=== PATIENT | male | born 1935 | race Hispanic/Latino ===

== ENCOUNTER → 2017-10-24 | Outpatient (CLI) | payer MEDICARE ==
--- NOTE | 2017-10-24 18:07 | Diagnostic Imaging Report ---
PROCEDURE: L-SPINE COMPLETE COMPARISON: CT the abdomen and pelvis from 06/30/2016 INDICATIONS: LOWER BACK PAIN FINDINGS: 5 views of the lumbar spine (AP, lateral, L5-S1 view, and bilateral obliques). Moderate to severe multilevel degenerative changes of the lumbar spine. There is severe disc space narrowing at L3-L4 and L5-S1. There is moderate disc space narrowing at all other levels. There is grade 1 retrolisthesis of L4, unchanged since at least 06/30/2016. Moderate facet arthrosis affects the lower lumbar spine. Mild height loss of the L4 vertebral body may be related to degenerative changes and is unchanged since at least 06/30/2016. Vertebral body heights are otherwise maintained. No fracture. There are vascular calcifications. Degenerative changes of the sacroiliac joints. CONCLUSION: Multilevel degenerative changes of the lumbar spine as described above. Dictated by: Pedro Conley M.D. on 10/24/2017 at 18:13 Electronically approved by: Pedro Conley M.D. on 10/24/2017 at 18:13
== END ==
LOC: RAD 15:44
PROVIDERS: ATTEND Family Medicine
DX: I73.9 Peripheral vascular disease, unspecified (principal); M54.5 Low back pain
CPT/HCPCS: 72110; 93922; 93925

== ENCOUNTER 2017-11-07 09:07 | Inpatient (IN) | payer MEDICARE ==
[2017-11-07] VITALS (12 sets, daily range): BP systolic 105–134; BP diastolic 56–81
[~2017-11-07] VITALS: Ht 165.1 cm; Wt 64.6 kg
[2017-11-07] MEDS ORDERED: ATORVASTATIN CA40 MG PO (09:39)
[2017-11-07] MEDS ORDERED: PANTOPRAZOLE SO40 MG PO (09:39)
[2017-11-07] MEDS ORDERED: LOSARTAN-HCTZ1 EAC2 PO (09:39)
[2017-11-07] MEDS ORDERED: MECLIZINE HCL25 MG PO (09:39)
[2017-11-07] MEDS ORDERED: LEVOTHYROXINE50 MCG PO (09:39)
[2017-11-07] MEDS ORDERED: FENOFIBRATE160 MG PO (09:39)
[2017-11-07] MEDS ORDERED: GABAPENTIN300 MG PO (09:39)
[2017-11-07] MEDS ORDERED: BENAZEPRIL HCL40 MG PO (09:39)
[2017-11-07] MEDS ORDERED: LOW DOSE ASPIRI81 MG PO (09:39)
[2017-11-07] MEDS ORDERED: DICLOFENAC SOD100 MG PO (09:39)
[2017-11-07] MEDS ORDERED: ASPIRIN 81 MG CHEW TAB PO ONE (09:45)
[2017-11-07 10:47] LABS: BASOPHILS # (AUTO) 0.1 (0.0-0.1); BASOPHILS % 0.8 % (0.0-1.0); EOSINOPHILS # (AUTO) 0.1 (0.0-0.4); EOSINOPHILS % 1.4 % (0.0-6.0); HEMATOCRIT 36.8 % (38.2-49.6); HEMOGLOBIN 11.9 g/dL (14.0-18.0); LYMPHOCYTES # (AUTO) 2.1 (1.0-3.2); LYMPHOCYTES % 25.9 % (18.0-39.1); MEAN CORPUSCULAR HEMOGLOBIN 28.7 pg (28-32); MEAN CORPUSCULAR HGB CONC 32.3 g/dL (31-35); MEAN CORPUSCULAR VOLUME 88.9 fL (81-99); MONOCYTES # (AUTO) 0.8 (0.2-0.8); MONOCYTES % 9.5 % (4.4-11.3); NEUTROPHILS # (AUTO) 4.9 (2.1-6.9); NEUTROPHILS % 61.1 % (38.7-80.0); PLATELET COUNT 412 x10e3/uL (140-360); RED BLOOD COUNT 4.14 x10e6/uL (4.3-5.7); RED CELL DISTRIBUTION WIDTH 13.8 % (11.7-14.4)
[2017-11-07 11:04] LABS: ALANINE AMINOTRANSFERASE 17 IU/L (0-55); ALBUMIN 3.6 g/dL (3.5-5.0); ALBUMIN/GLOBULIN RATIO 1.1 (0.8-2.0); ALKALINE PHOSPHATASE 34 IU/L (40-150); ANION GAP 13.8 mmol/L (8-16); BLOOD UREA NITROGEN 24 mg/dL (7-26); BUN/CREATININE RATIO 24 (6-25); CALCIUM 9.9 mg/dL (8.4-10.2); CARBON DIOXIDE 27 mmol/L (22-29); CHLORIDE 104 mmol/L (98-107); CREATINE KINASE 117 IU/L (30-200); CREATININE, SERUM 1.02 mg/dL (0.72-1.25); EST GLOMERULAR FILTRATION RATE > 60 ML/MIN (60-); GLUCOSE 117 mg/dL (74-118); POTASSIUM 3.8 mmol/L (3.5-5.1); SODIUM 141 mmol/L (136-145)
--- NOTE | 2017-11-07 11:06 | Diagnostic Imaging Report ---
PROCEDURE: A single AP view of the chest. COMPARISON: None. INDICATIONS: CHEST PAIN FINDINGS: Lines/tubes: Overlying EKG leads. Rounded opacities projecting left of midline likely overlie the patient. Lungs: Low lung volumes. Mild patchy dependent atelectasis. No evidence of pneumonia or pulmonary edema. Pleura: There is no pleural effusion or pneumothorax. Heart and mediastinum: The cardiomediastinal silhouette is unremarkable. There is a tortuous and ectatic thoracic aorta. Atherosclerotic aortic calcifications. Bones: No acute bony abnormality. IMPRESSION: No evidence of pneumothorax. Clear lungs. Tortuous and ectatic thoracic aorta. Dictated by: SHAMIKA CALLEJAS M.D. on 11/07/2017 at 11:12 Electronically approved by: SHAMIKA CALLEJAS M.D. on 11/07/2017 at 11:12
--- NOTE | 2017-11-07 12:55 | Consultation ---
DATE OF CONSULTATION: November 07, 2017 CARDIOLOGY CONSULTATION REFERRING PHYSICIAN: Shaw Hernandez MD REASON FOR CONSULTATION: Syncope. HISTORY OF PRESENT ILLNESS: Mr. Deng is a very pleasant, 82-year-old man with history of recent syncopal spells for which we initiated outpatient workup. His monitor revealed pauses of 5 seconds associated in time with his episodes of lightheadedness. He also describes some dyspnea on exertion and has been complaining lately of left shoulder pain that worsens with movement of the left upper extremity. It is unaffected by exertion. His EKG shows sinus rhythm, 1st-degree AV block and bifascicular block. He has a history hypertension, dyslipidemia, hypothyroidism and drop feet as well as deconditioning. TWELVE-SYSTEM REVIEW: Negative except for as noted above. HOME MEDICATIONS: Include: 1. Benazepril 40 mg daily. 2. Pantoprazole 40 mg daily. 3. Losartan and hydrochlorothiazide 100 and 12.5 mg daily. 4. Fenofibrate 160 mg daily. 5. Aspirin 81 mg daily. 6. Magnesium 500 mg once daily. 7. Meclizine 25 mg daily. 8. Diclofenac 50 mg 3 times a day as needed. 9. Levothyroxine 50 mcg daily. 10. Atorvastatin 40 mg nightly. Benazepril was recently discontinued for low blood pressure concerns. SOCIAL HISTORY: Former smoker. No alcohol. No drugs. FAMILY HISTORY: Noncontributory. PHYSICAL EXAMINATION VITALS: Temperature 97.8, heart rate 57, respiratory rate 18, blood pressure 133/63, O2 sat 90% on room air. GENERAL: In no acute distress, alert. NECK: No JVD. CHEST: Clear to auscultation. CARDIOVASCULAR: Regular rate and rhythm. Normal S1 and decreased S2. Crescendo systolic ejection murmur radiating to carotids. ABDOMEN: Soft, nontender. EXTREMITIES: No edema. STUDIES: Sodium 141, potassium 3.8, chloride 104, bicarbonate 27, BUN 24, creatinine 1.02, glucose 117, calcium 9.9. Total bilirubin 1, AST 21, ALT 17, alk phos 234. CK 117, CK-MB 8.1, troponin I 0.209, total protein 7, albumin 3.6. White blood cells 7.9, hemoglobin 11.9, platelets 112, neutrophils 61, lymphocytes 26, monocytes 10, eosinophils 1.4. EKG: As described above. Chest x-ray: No evidence of pneumothorax. Clear lungs. Tortuous and ectatic thoracic aorta. ASSESSMENT 1. Syncope in the setting of sinus pauses. 2. Episodes of ventricular ectopy also noted on outpatient monitoring as well as episodes of sinus bradycardia. 3. A systolic murmur concerning for aortic stenosis. Will obtain an echocardiogram. 4. Hypertension. 5. Dyslipidemia. RECOMMENDATIONS: EP has been consulted. Plan for pacemaker placement today. He has a significant conduction disease. Further workup will follow. Obtain echocardiogram. Avoid chronotropic negative medications. Job#: [id number]
[2017-11-07] MEDS ORDERED: SODIUM CHLORIDE 0.9% 1000ML 2,000 ML ONE (13:33)
[2017-11-07] MEDS ORDERED: SODIUM CHLORIDE 0.9% 500ML 500 ML ONE (13:33)
[2017-11-07] MEDS ORDERED: MIDAZOLAM HCL 2 MG/2 ML VIAL ONE ×2 (13:33→15:18)
[2017-11-07] MEDS ORDERED: BACITRACIN 50,000 UNIT VIAL ONE (13:33)
[2017-11-07] MEDS ORDERED: FENTANYL CITRATE/PF 100MCG/2 ML INJ ONE (13:33)
[2017-11-07] MEDS ORDERED: LIDOCAINE HCL 2% LOCAL 20 ML VIAL ONE (13:33)
[2017-11-07] MEDS ORDERED: VANCOMYCIN 1GM/NS 250 ML 250 ML ONE (14:23)
[2017-11-07] MEDS ORDERED: ACETAMINOPHEN/CODEINE 300MG - 30MG TAB PO PRN (16:15)
[2017-11-07] MEDS ORDERED: MORPHINE SULFATE 2 MG/ML SYR IV PRN (16:15)
--- NOTE | 2017-11-07 16:48 | Diagnostic Imaging Report ---
PROCEDURE: A single AP view of the chest. COMPARISON: 11/07/2017 INDICATIONS: POST PACEMAKER PLACEMENT TODAY FINDINGS: Lines/tubes: Left chest wall pacemaker has leads in the right atrium and right ventricular apex. Lungs: Low lung volumes bibasilar atelectasis. No focal consolidation. Pleura: There is no pleural effusion or pneumothorax. Heart and mediastinum: Normal heart size. Tortuosity of the thoracic aorta, unchanged. Bones: No acute bony abnormality. Degenerative changes of the thoracic spine and shoulders. IMPRESSION: Status post left chest wall pacemaker placement with leads in the expected positions. No evidence of pneumothorax. Dictated by: Pedro Conley M.D. on 11/07/2017 at 16:54 Electronically approved by: Pedro Conley M.D. on 11/07/2017 at 16:54
[2017-11-07] MEDS ORDERED: ATORVASTATIN 40 MG TAB PO SCH (21:00)
--- NOTE | 2017-11-07 22:43 | Operative Report ---
DATE OF PROCEDURE: 11/07/2017 REFERRING PHYSICIAN: Dr. Davies PREPROCEDURE DIAGNOSES: 1. Near syncope episode. 2. Sinus pauses recorded on an event monitor. 3. Left bundle-branch block. 4. History of dizziness, no reversible causes. POSTPROCEDURE DIAGNOSES: 1. Near syncope episode. 2. Sinus pauses recorded on an event monitor. 3. Left bundle-branch block. 4. History of dizziness, no reversible causes. ATTENDING PHYSICIAN: Dr. Rhett Ngo ANESTHESIA: Moderate sedation. ESTIMATED BLOOD LOSS: 5 mL. COMPLICATIONS: None. PROCEDURES PERFORMED: 1. Dual-chamber pacemaker placement. 2. Moderate sedation. Moderate conscious sedation was provided under my direct supervision by a sedation-trained nurse. Sedation approximate time 30 minutes, Versed and Fentanyl. There were no complications. See sedation form for details. DESCRIPTION OF PROCEDURE: After informed consent was obtained, patient was brought to the electrophysiology laboratory in a fasting, nonsedated state. Area over his chest was prepped and draped in the usual sterile fashion. Moderate sedation and prophylactic antibiotic were given, 1% lidocaine was used as local anesthetic and a 3-cm skin incision was made in the left subclavicular area. Electrocautery and sharp and blunt dissection were used to reach the muscular fascia and a pocket was created for eventual implantation of the device. Vascular access was obtained x2 in the left axillary vein using the modified Seldinger technique under fluoroscopic guidance. Two 6-Pashto sheaths were placed. The ventricular lead advanced to the RV apex, R-wave 11, pacing 0.5 at 0.5, impedance 870; the atrial lead to the right atrial appendage, P-wave 4.2, pacing 0.6 at 0.5, impedance 590. Sheaths were removed from the body. Leads were secured to fascia using #0 silk. Pocket was irrigated with antibiotic solution using the pulse fixer supervisor. Hemostasis was meticulous. Leads were connected to the device and the entire pacemaker system placed in the pocket. Incision was closed using Vicryl and Dermabond. Patient tolerated the procedure well. Procedure was deemed complete. SUMMARY OF HARDWARE IMPLANTED: 1. The new pacemaker is [employer], model #L311, [id number]. 2. The atrial lead is [employer], model #7781, [id number]. 3. The ventricular lead is [employer], model #2679, [id number]. IMPRESSION: Successful dual-chamber pacemaker implant via left axillary vein. PLAN: 1. Routine postoperative monitoring on telemetry bed. 2. Chest x-ray. 3. Follow up in 2 weeks. Job#: [id number] DR PICHARDO
--- NOTE | 2017-11-07 22:56 | Consultation ---
DATE OF CONSULTATION: November 07, 2017 REFERRING PHYSICIAN: Dr. Davies REASON FOR CONSULT: Recurrent syncope, bradycardia. HISTORY OF PRESENT ILLNESS: This is an 82-year-old gentleman with history of hypertension, history of recurrent syncope, and near syncope episodes. He has been wearing an event monitor that demonstrated several episodes of sinus pauses for about 3 or 4 seconds. This correlated with an episode of near syncope yesterday, so he was called in to present to the ER, in the ER he has been in sinus rhythm, he has a chronic left bundle-branch block. Hemodynamically stable. There are no reversible causes. He is not taking any AV sheila blocking agents. REVIEW OF SYSTEMS: CONSTITUTIONAL: Negative. CARDIOVASCULAR: As per HPI. RESPIRATORY: Negative. GASTROINTESTINAL: Negative. GENITOURINARY: Negative. MUSCULOSKELETAL: Negative. EYES: Negative. ENT: Negative. ALLERGY/IMMUNOLOGY: Negative. PSYCHIATRIC: Negative. PAST MEDICAL HISTORY: Hypertension, left bundle-branch block. SURGICAL HISTORY: Negative. FAMILY HISTORY: No premature coronary artery disease. SOCIAL HISTORY: Denies smoking, alcohol. PHYSICAL EXAMINATION: VITAL SIGNS: Blood pressure 138/60, pulse of 70, respiration 20, O2 sat is 98%. GENERAL: In no acute distress. HEENT: Moist mucous membranes. CARDIOVASCULAR: Regular. RESPIRATORY: Clear. ABDOMEN: Soft, nontender. MUSCULOSKELETAL: 2+ distal pulses. NEUROLOGICAL: No focal deficit. SKIN: No lesions. PSYCHIATRIC: Normal thought process. EKG: Sinus, left bundle-branch block. IMPRESSION: 1. Symptomatic bradycardia, sinus node dysfunction with sinus pauses for about 4 or 5 seconds recorded on even monitor, correlated with dizziness and near syncope. 2. History of recurrent syncope, no reversible causes. RECOMMENDATIONS: Discussed with the patient in detail procedure benefits and risks. Patient voices understanding and wishes to proceed. He has a strong indication for pacing. Will plan for a dual-chamber pacemaker placement. Thank you for letting us participate in Mr. Deng's health care. Job#: [id number] DR PICHARDO
[2017-11-08] VITALS: BP 109/56
[2017-11-08 04:00] VITALS: BP 124/58
[2017-11-08 05:41] LABS: BASOPHILS # (AUTO) 0.1 (0.0-0.1); BASOPHILS % 0.6 % (0.0-1.0); EOSINOPHILS # (AUTO) 0.1 (0.0-0.4); EOSINOPHILS % 1.6 % (0.0-6.0); HEMATOCRIT 35.3 % (38.2-49.6); HEMOGLOBIN 11.3 g/dL (14.0-18.0); LYMPHOCYTES # (AUTO) 2.3 (1.0-3.2); LYMPHOCYTES % 26.4 % (18.0-39.1); MEAN CORPUSCULAR HEMOGLOBIN 28.5 pg (28-32); MEAN CORPUSCULAR VOLUME 88.9 fL (81-99); MONOCYTES % 11.2 % (4.4-11.3); NEUTROPHILS # (AUTO) 5.1 (2.1-6.9); NEUTROPHILS % 59.3 % (38.7-80.0); PLATELET COUNT 334 x10e3/uL (140-360); RED BLOOD COUNT 3.97 x10e6/uL (4.3-5.7); RED CELL DISTRIBUTION WIDTH 13.5 % (11.7-14.4)
[2017-11-08] MEDS ORDERED: LEVOTHYROXINE SODIUM 50 MCG TAB PO SCH ×2 (06:00→09:00)
[2017-11-08 06:06] LABS: ANION GAP 12.6 mmol/L (8-16); BLOOD UREA NITROGEN 20 mg/dL (7-26); BUN/CREATININE RATIO 22 (6-25); CALCIUM 9.2 mg/dL (8.4-10.2); CARBON DIOXIDE 25 mmol/L (22-29); CHLORIDE 107 mmol/L (98-107); CREATININE, SERUM 0.92 mg/dL (0.72-1.25); EST GLOMERULAR FILTRATION RATE > 60 ML/MIN (60-); GLUCOSE 105 mg/dL (74-118); MAGNESIUM 1.8 MG/DL (1.3-2.1); POTASSIUM 3.6 mmol/L (3.5-5.1); SODIUM 141 mmol/L (136-145)
[2017-11-08 06:37] LABS: THYROID STIMULATING HORMONE 1.488 uIU/mL (0.350-4.940)
[2017-11-08 08:17] VITALS: BP 106/67
[2017-11-08 08:35] VITALS: BP 106/67
[2017-11-08] MEDS ORDERED: FENOFIBRATE 145 MG TAB PO SCH (09:00)
[2017-11-08] MEDS ORDERED: NON-FORMULARY MEDICATION (Atorvastatin Calcium 40 MG) PO SCH (09:00)
[2017-11-08] MEDS ORDERED: NON-FORMULARY MEDICATION (Benazepril Hcl 40 MG) PO SCH (09:00)
[2017-11-08] MEDS ORDERED: NON-FORMULARY MEDICATION (Fenofibrate 160 MG) PO SCH (09:00)
[2017-11-08] MEDS ORDERED: BENAZEPRIL HCL 10 MG TAB PO SCH (09:00)
--- NOTE | 2017-11-08 09:58 | Discharge Summary ---
PRIMARY CARE DOCTOR: Dr. Perico Parmar FINAL DIAGNOSIS: Sick sinus syndrome due to 5-second sinus pause causing syncope. SECONDARY DIAGNOSES 1. Hypertension. 2. Dyslipidemia. 3. Hypothyroidism. CONSULTANTS 1. Dr. Davies, cardiology. 2. Dr. You, EP flight communications specialist. PROCEDURES/STUDIES PERFORMED: Pacemaker placement. HISTORY: Per H and P. HOSPITAL COURSE: The patient underwent an uneventful pacemaker placement. The patient will follow with Dr. You in 2 weeks. He will be getting minocycline for 5 days and also Tylenol No. 3 for pain. The patient also has a systolic murmur. Could be due to aortic stenosis. I have discussed with Dr. Davies. We will check an echocardiogram as an outpatient. His TSH is normal. The patient was seen and examined today. CONDITION ON DISCHARGE: Stable. DISCHARGE MEDICATIONS: Please medication reconciliation form. LINWOOD OLIVEIRA M.D. Job#: [id number] RI cc:PERICO PARMAR MD
[2017-11-08] MEDS ORDERED: MINOCYCLINE HCL 50 MG CAP PO NR (10:00)
[2017-11-08] MEDS ORDERED: TYLENOL WITH C1 EACH PO (11:08)
[2017-11-08] MEDS ORDERED: MINOCYCLINE HCL50 MG PO (11:10)
[2017-11-08] MEDS ORDERED: ULTRAM50 MG PO (11:11)
[2017-11-08 11:54] VITALS: BP 114/54
== END 2017-11-08 12:43 | disposition home or self-care (01) | DRG 244 ==
LOC: ER 09:07 → ERHOLD 11:36 → UNDOADMIN 11:36 → CATH LAB 17:03 → CATH LAB V 17:05 → MED/SURG 17:28
PROVIDERS: ADMIT Internal Medicine; ATTEND Internal Medicine
PROC: 0JH606Z Insertion of Pacemaker, Dual Chamber into Chest Subcutaneous Tissue and Fascia, Open Approach (ICD-10-PCS; principal; 2017-11-07)
PROC: 02H63JZ Insertion of Pacemaker Lead into Right Atrium, Percutaneous Approach (ICD-10-PCS; 2017-11-07)
PROC: 02HK3JZ Insertion of Pacemaker Lead into Right Ventricle, Percutaneous Approach (ICD-10-PCS; 2017-11-07)
DX: I44.1 Atrioventricular block, second degree (principal); R00.1 Bradycardia, unspecified; I44.7 Left bundle-branch block, unspecified; R55 Syncope and collapse; I10 Essential (primary) hypertension; R01.1 Cardiac murmur, unspecified; I35.0 Nonrheumatic aortic (valve) stenosis; E78.5 Hyperlipidemia, unspecified
CPT/HCPCS: 33208; 36415; 71045; 80048; 80053; 82550; 82553; 83735; 84443; 84484; 85025; 93005; 99284; C1898; J2001; J2250; J3370; J7030; J7040

== ENCOUNTER → 2018-06-05 | Outpatient (CLI) | payer MEDICARE ==
[~2018-06-05] MED LIST: ATORVASTATIN CA40 MG PO; BENAZEPRIL HCL40 MG PO; DICLOFENAC SOD100 MG PO; FENOFIBRATE160 MG PO; GABAPENTIN300 MG PO; LEVOTHYROXINE50 MCG PO; LOSARTAN-HCTZ1 EAC2 PO; LOW DOSE ASPIRI81 MG PO; MAGNESIUM OXID400 MG PO; MECLIZINE HCL25 MG PO; MINOCYCLINE HCL50 MG PO; PANTOPRAZOLE SO40 MG PO; TYLENOL WITH C1 EACH PO; ULTRAM50 MG PO
--- NOTE | 2018-06-05 14:05 | Diagnostic Imaging Report ---
Exam: Bilateral knees, 2 views History: Knee pain Comparison: Left knee 3 views 11/15/2017 Findings: Right knee: No acute, displaced fracture or dislocation. Tricompartmental joint space narrowing and marginal osteophytosis with chondrocalcinosis. A small nonspecific suprapatellar joint effusion. Left knee: No acute, displaced fracture or dislocation. Tricompartmental joint space narrowing and marginal osteophytosis with associated chondrocalcinosis. Small nonspecific suprapatellar joint effusion. Soft tissues unremarkable. 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 Small bilateral nonspecific suprapatellar joint effusions. Signed by: Dr. Ian Broussard M.D. on 06/05/2018 2:02 PM
== END ==
LOC: RAD 13:17
PROVIDERS: ATTEND Family Medicine
DX: M25.562 Pain in left knee (principal); M25.561 Pain in right knee

== ENCOUNTER → 2019-01-24 | Outpatient (CLI) | payer MEDICARE ==
--- NOTE | 2019-01-24 13:25 | Diagnostic Imaging Report ---
Exam: Testicular ultrasound. Clinical History: Testicular pain Findings: Sonographic evaluation of the testicles. Both testes are normal in echogenicity and size without intratesticular mass. The testes demonstrate normal symmetric blood flow without evidence of torsion. RIGHT: The right testicle measures 4.0 x 2.7 x 2.6 cm and appears unremarkable. The right epididymis measures 0.4 x 0.5 x 0.5 cm and appears unremarkable. Large right hydrocele. No varicocele. LEFT: The left testicle measures 4.1 x 2.7 x 2.7 cm and appears unremarkable. The left epididymis measures 0.7 x 0.4 x 0.3 cm and appears unremarkable. Large left hydrocele. No varicocele. Impression: Bilateral large hydroceles. No testicular torsion. No intratesticular mass. Signed by: Viv Pham MD on 01/24/2019 1:22 PM
== END ==
LOC: US 11:48
PROVIDERS: ATTEND Family Medicine
DX: N50.819 Testicular pain, unspecified (principal)
CPT/HCPCS: 76870; 93976

== ENCOUNTER → 2019-08-21 | Day surgery (SDC) | payer MEDICARE, OTHER ==
[2019-08-18 09:49] LABS: BASOPHILS # (AUTO) 0.1 (0.0-0.1); BASOPHILS % 0.8 % (0.0-1.0); EOSINOPHILS # (AUTO) 0.2 (0.0-0.4); EOSINOPHILS % 2.3 % (0.0-6.0); HEMOGLOBIN 13.1 g/dL (14.0-18.0); LYMPHOCYTES # (AUTO) 2.5 (1.0-3.2); LYMPHOCYTES % 28.9 % (18.0-39.1); MEAN CORPUSCULAR HGB CONC 31.2 g/dL (31-35); MEAN CORPUSCULAR VOLUME 86.6 fL (81-99); MONOCYTES # (AUTO) 0.9 (0.2-0.8); NEUTROPHILS # (AUTO) 4.9 (2.1-6.9); NEUTROPHILS % 56.6 % (38.7-80.0); PLATELET COUNT 247 x10e3/uL (140-360); RED BLOOD COUNT 4.85 x10e6/uL (4.3-5.7); RED CELL DISTRIBUTION WIDTH 14.1 % (11.7-14.4)
[2019-08-18 10:03] LABS: INR 0.95; PROTHROMBIN TIME 13.2 seconds (11.9-14.5)
[2019-08-18 10:04] LABS: PARTIAL THROMBOPLASTIN TIME 32.8 seconds (23.8-35.5)
[2019-08-18 10:13] LABS: ALANINE AMINOTRANSFERASE 29 IU/L (0-55); ALBUMIN 4.2 g/dL (3.5-5.0); ALBUMIN/GLOBULIN RATIO 1.3 (0.8-2.0); ALKALINE PHOSPHATASE 88 IU/L (40-150); BLOOD UREA NITROGEN 14 mg/dL (7-26); BUN/CREATININE RATIO 17 (6-25); CALCIUM 9.8 mg/dL (8.4-10.2); CARBON DIOXIDE 25 mmol/L (22-29); CHLORIDE 108 mmol/L (98-107); CREATININE, SERUM 0.81 mg/dL (0.72-1.25); EST GLOMERULAR FILTRATION RATE > 60 ML/MIN (60-); GLUCOSE 117 mg/dL (74-118); SODIUM 146 mmol/L (136-145)
[2019-08-18 10:33] LABS: CHOL/HDL RATIO 2.5 (3.9-4.7); CHOLESTEROL 115 MD/DL (0-199); HDL CHOLESTEROL 46 MG/DL (40-60); LDL CHOLESTEROL 59 MG/DL (60-130); TRIGLYCERIDES 48 MG/DL (0-149)
[2019-08-21] VITALS (13 sets, daily range): BP systolic 108–167; BP diastolic 66–88
[~2019-08-21] VITALS: Ht 165.1 cm; Wt 63.5 kg
[~2019-08-21] MED LIST changes: +ADVIL200 M1 PO; +ASPIRIN 325 MG TAB ONE; +CLOPIDOGREL BISULFATE 75 MG TAB ONE; +CLOPIDOGREL75 MG PO; +ELIQUIS5 MG PO; +FENTANYL CITRATE/PF 100MCG/2 ML INJ ONE; +HEPARIN SOD (PORCINE) 1000 UNIT/ML 30ML ONE; +HEPARIN SOD/SOD CHLORIDE 2,000 ML ONE; +HYDROCHLOROTH12.5 MG PO; +IOPAMIDOL 370 MG/ML 200 ML INFUS..BTL INJ ONE; +LIDOCAINE HCL 2% LOCAL 20 ML VIAL ONE; +LOSARTAN POTASS25 MG PO; +METOPROLOL SUCC25 MG PO; +MIDAZOLAM HCL 2 MG/2 ML VIAL ONE; +NITROGLYCERIN/D5W 200 MCG/ML 250 ML ONE; +SODIUM CHLORIDE 0.9% 1000ML 1,000 ML ONE; +VERAPAMIL HCL 2.5 MG/ML 2 ML VIAL ONE
--- NOTE | 2019-08-21 10:10 | NUR ---
1010 am RECEIVING NOTE [facility]............................................................... Bedside report received from LINDSAY Lau. Identifierx2. Alert oriented and appropriate, PERRLA, respirations even and unlabored to room air. Pulses x4 extremities equal and strong. Pedal pulses PT/DP X4 and marked. Cap fill brisk < 3 sec. Skin warm and dry integrity appears D/I IV 20g to left hand presents healthy w/o s/s of infiltration or complaint. Abdomen soft and supple. pt offered toileting, denies need to urinate or defecate. No personal affects with patient. Family at bedside ([place])Pt and family verbalizes understanding of POC. Currently w/o complaint of pain or need. farhat/lindsay
--- NOTE | 2019-08-21 11:00 | NUR ---
1100a RADIAL COMPRESSION REMOVAL NOTE: Initial Cuff volume 15 cc 1100a -2cc Removed No hematoma/bleeding noted with normal neurovascular function. 1115a -3cc Removed No hematoma/ bleeding noted with normal neurovascular function. 1515a -5cc Removed No hematoma/bleeding noted with normal neurovascular function. 1530a -5cc Removed No hematoma/bleeding noted with normal neurovascular function Air removal completed. Stasis achieved sterile 2x2,Tegaderm, Coban dressing No hematoma, bleeding noted with normal neurovascular function. Wrist splint in place. Pt instructed on POC. Ds/Rn
--- NOTE | 2019-08-21 11:40 | NUR ---
2199 faxed diagram of procedure to Dr Davies office per MD request ds/rn
--- NOTE | 2019-08-21 15:00 | NUR ---
1500p office staff verified relieved faxed diagram. ds/rn
--- NOTE | 2019-08-21 16:00 | NUR ---
1600pm [facility] DISCHARGE NURSING NOTE Pt meets DC criteria. Rt Wrist assessed for s/s of complication and presence of hematoma. Skin warm, dry, no discolor, and pulses present. IV removed from left hand. Distal tip appears intact. VS WNL. Pt denies pain, sob, or need at this time. Family at bs daughter at bs . Review of discharge paperwork and follow up instructions. verbalized understanding. Pt to wheelchair and transported to front of hospital. Transferred to private vehicle under own strength w/o incident with DC paperwork in hand. - ds/rn
--- NOTE | 2019-08-22 03:41 | Operative Report ---
DATE OF PROCEDURE: 08/21/2019 SURGEON: Juan Luis Herrera MD PROCEDURES PERFORMED: 1. Left heart catheterization. 2. Selective coronary angiography. 3. Moderate sedation. 4. RCA to RPDA drug-eluting stent PCI using a 3.5 x 12 [employer] Synergy drug-eluting stent, postdilated with 2.75 NC balloon at 25 atmospheres. PROCEDURE COMPLICATIONS: None. ESTIMATED BLOOD LOSS: Less than 15 mL. PROCEDURE SUMMARY: After consent was obtained, the patient was prepped and draped in sterile fashion. The right radial site was locally infiltrated with 2% lidocaine and with single anterior stick, access was obtained. A 5-Bangladeshi outer diameter slender sheath was advanced. A TIG catheter was used as a universal catheter for engagement of left main, right coronary artery, as well as to cross the aortic valve for hemodynamic measurements. It was decided to proceed with RCA drug-eluting stent PCI using the run-through wire. Heparin to be continued with ACT over 250, aspirin 325 mg and Plavix 600 mg loading. A run-through wire to cross the area of stenosis and position into the distal RPDA. On primary stenting with a Synergy 2.5 x 12 drug-eluting stent to 18 atmospheres postdilated with an NC Quantum for an area of stent under extension with 2.75 x 8 NC Quantum to 25 atmospheres were added into stent expansion. The procedure findings were as follows. 1. LV pressure is 151/14 with end-diastolic pressure of 22. 2. Aortic pressure is 146/68. 3. Left main is large in caliber with luminal irregularities gives an LAD, ramus intermedius, and circumflex. 4. The LAD proximally has 30% stenosis after given the septal land degradation analyst to the distal LAD has 30% tubular stenosis. 5. The ramus intermedius has luminal irregularities, gives 3 terminal branches, which are small in caliber. 6. Throughout the circumflex, there are luminal irregularities due to small obtuse marginals in 2 left posterolateral branches. 7. The left coronary artery is dominant. In the mid segment, it has a calcific 30% diffuse stenosis at the crux level and it has an 80% calcific focal severe stenosis, which was a target lesion, treated with drug-eluting stent from RCA distal into the RPDA. Preceding the stent placement, given heavy calcifications, this was a type C lesion. Postprocedure stenosis less than 10%. No flow-limiting dissections or perforations were observed with good stents throughout apposition and expansion at the end of the procedure. 8. Of note, no left ventriculogram was performed. CONCLUSION: 1. 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 I recommend aspirin 81 mg daily, clopidogrel 75 mg daily. 2. Wean TR band. 3. IV fluids. 4. Follow up in 12 weeks. Juan Luis Herrera MD AFV/MODL /[id number] MTDD
== END | disposition home or self-care (01) ==
LOC: CATH LAB 06:45
PROVIDERS: ATTEND Internal Medicine Cardiovascular Disease
DX: I25.10 Atherosclerotic heart disease of native coronary artery without angina pectoris (principal); I25.84 Coronary atherosclerosis due to calcified coronary lesion; I11.0 Hypertensive heart disease with heart failure; I50.22 Chronic systolic (congestive) heart failure; R94.39 Abnormal result of other cardiovascular function study; I48.92 Unspecified atrial flutter; I35.0 Nonrheumatic aortic (valve) stenosis; R94.31 Abnormal electrocardiogram [ECG] [EKG]; G45.1 Carotid artery syndrome (hemispheric); E78.5 Hyperlipidemia, unspecified; E03.9 Hypothyroidism, unspecified; Z79.02 Long term (current) use of antithrombotics/antiplatelets; Z79.82 Long term (current) use of aspirin; Z95.0 Presence of cardiac pacemaker; Z82.49 Family history of ischemic heart disease and other diseases of the circulatory system
CPT/HCPCS: 93458; C9600; 36415; 80053; 80061; 85025; 85610; 85730; 87635; 92928; 99152; 99153; C1769; C1874; C1887; J1644; J2001; J2250; J3010; J7030; Q9967

== ENCOUNTER → 2020-05-11 | Outpatient (CLI) | payer MEDICARE ==
[~2020-05-11] MED LIST changes: -ASPIRIN 325 MG TAB ONE; -CLOPIDOGREL BISULFATE 75 MG TAB ONE; -FENTANYL CITRATE/PF 100MCG/2 ML INJ ONE; -HEPARIN SOD (PORCINE) 1000 UNIT/ML 30ML ONE; -HEPARIN SOD/SOD CHLORIDE 2,000 ML ONE; -IOPAMIDOL 370 MG/ML 200 ML INFUS..BTL INJ ONE; -LIDOCAINE HCL 2% LOCAL 20 ML VIAL ONE; -MIDAZOLAM HCL 2 MG/2 ML VIAL ONE; -NITROGLYCERIN/D5W 200 MCG/ML 250 ML ONE; -SODIUM CHLORIDE 0.9% 1000ML 1,000 ML ONE; -VERAPAMIL HCL 2.5 MG/ML 2 ML VIAL ONE
== END ==
LOC: CARD 11:09
PROVIDERS: ATTEND Family Medicine
DX: R60.9 Edema, unspecified (principal)
CPT/HCPCS: 93922; 93925

== ENCOUNTER 2020-09-06 07:48 | Inpatient (IN) | payer MEDICARE ==
[2020-09-01 09:35] LABS: BASOPHILS # (AUTO) 0.1 (0.0-0.1); BASOPHILS % 0.9 % (0.0-1.0); EOSINOPHILS # (AUTO) 0.1 (0.0-0.4); EOSINOPHILS % 1.3 % (0.0-6.0); HEMATOCRIT 39.8 % (38.2-49.6); HEMOGLOBIN 12.3 g/dL (14.0-18.0); LYMPHOCYTES # (AUTO) 1.6 (1.0-3.2); MEAN CORPUSCULAR HEMOGLOBIN 27.6 pg (28-32); MEAN CORPUSCULAR HGB CONC 30.9 g/dL (31-35); MEAN CORPUSCULAR VOLUME 89.2 fL (81-99); NEUTROPHILS # (AUTO) 6.1 (2.1-6.9); NEUTROPHILS % 68.5 % (38.7-80.0); PLATELET COUNT 249 x10e3/uL (140-360); RED BLOOD COUNT 4.46 x10e6/uL (4.3-5.7); RED CELL DISTRIBUTION WIDTH 15.1 % (11.7-14.4)
[2020-09-01 10:05] LABS: ALBUMIN 3.5 g/dL (3.5-5.0); ALBUMIN/GLOBULIN RATIO 1.3 (0.8-2.0); ANION GAP 13.8 mmol/L (8-16); CALCIUM 8.9 mg/dL (8.4-10.2); CREATININE, SERUM 0.9 mg/dL (0.72-1.25); POTASSIUM 3.8 mmol/L (3.5-5.1)
[2020-09-01 10:09] LABS: INR 1.05; PROTHROMBIN TIME 14.3 seconds (11.9-14.5)
[2020-09-01 10:31] LABS: CHOL/HDL RATIO 2.8 (3.9-4.7)
[2020-09-01 10:39] LABS: PARTIAL THROMBOPLASTIN TIME 30.4 seconds (23.8-35.5)
[2020-09-01 11:01] LABS: THYROID STIMULATING HORMONE 0.845 uIU/mL (0.350-4.940)
[2020-09-06] VITALS (13 sets, daily range): BP systolic 143–164; BP diastolic 79–96
[~2020-09-06] VITALS: Ht 165.1 cm; Wt 63.5 kg
[2020-09-06] MEDS ORDERED: MIDAZOLAM HCL 2 MG/2 ML VIAL ONE (09:37)
[2020-09-06] MEDS ORDERED: FENTANYL CITRATE/PF 100MCG/2 ML INJ ONE (09:37)
[2020-09-06] MEDS ORDERED: HEPARIN SOD ONE (09:38)
[2020-09-06] MEDS ORDERED: IOPAMIDOL 370 MG/ML 200 ML INFUS..BTL INJ ONE (09:38)
[2020-09-06] MEDS ORDERED: LIDOCAINE HCL 2% LOCAL 20 ML VIAL ONE (09:38)
[2020-09-06] MEDS ORDERED: SODIUM CHLORIDE 0.9% 1000ML 1,000 ML ONE (09:38)
[2020-09-06] MEDS ORDERED: SOD CHLORIDE ONE (09:38)
[2020-09-06] MEDS ORDERED: ASPIRIN 325 MG TAB ONE (10:18)
[2020-09-06] MEDS: FUROSEMIDE INJ 10 MG/ML 2 ML VIAL IV SCH (16:35)
[2020-09-06] MEDS: VALSARTAN/SACUBITRIL 24MG/26MG 1 EA TAB PO SCH (21:17)
[2020-09-06] MEDS: CARVEDILOL 3.125 MG TAB PO SCH (21:17)
[2020-09-07] VITALS (7 sets, daily range): BP systolic 138–150; BP diastolic 64–85
[2020-09-07] MEDS: LEVOTHYROXINE SODIUM 50 MCG TAB PO SCH (06:00)
[2020-09-07] MEDS ORDERED: MIDAZOLAM HCL 2 MG/2 ML VIAL ONE ×3 (07:59→09:48)
[2020-09-07] MEDS ORDERED: LIDOCAINE HCL 2% LOCAL 20 ML VIAL ONE (08:00)
[2020-09-07] MEDS ORDERED: SODIUM CHLORIDE 0.9% 1000ML 2,000 ML ONE (08:00)
[2020-09-07] MEDS ORDERED: GENTAMICIN SULFATE 40 MG/ML 2 ML VIAL ONE (08:00)
[2020-09-07] MEDS ORDERED: SODIUM CHLORIDE 0.9% 500ML 500 ML ONE (08:00)
[2020-09-07] MEDS ORDERED: FENTANYL CITRATE/PF 100MCG/2 ML INJ ONE ×2 (08:00→09:31)
[2020-09-07] MEDS ORDERED: Vancomycin IV 1 GM VIAL ONE ×2 (08:31→08:40)
[2020-09-07] MEDS ORDERED: SODIUM CHLORIDE 0.9% 50ML 50 ML ONE ×2 (08:40→10:06)
[2020-09-07] MEDS ORDERED: SODIUM CHLORIDE 0.9% 250ML 250 ML ONE (08:41)
[2020-09-07] MEDS ORDERED: NON-FORMULARY MEDICATION (Atorvastatin Calcium 80 MG) PO SCH (09:00)
[2020-09-07] MEDS ORDERED: ATORVASTATIN 40 MG TAB PO SCH ×2 (09:00→21:00)
[2020-09-07] MEDS: FUROSEMIDE INJ 10 MG/ML 2 ML VIAL IV SCH (12:14)
[2020-09-07] MEDS: CARVEDILOL 3.125 MG TAB PO SCH ×2 (12:14→20:24)
[2020-09-07] MEDS: VALSARTAN/SACUBITRIL 24MG/26MG 1 EA TAB PO SCH ×2 (12:14→20:24)
[2020-09-07] MEDS: CLOPIDOGREL BISULFATE 75 MG TAB PO SCH (12:15)
[2020-09-07] MEDS: GABAPENTIN 400 MG CAP PO SCH (12:15)
[2020-09-08 00:34] VITALS: BP 133/74
[2020-09-08 04:30] VITALS: BP 147/74
[2020-09-08] MEDS: LEVOTHYROXINE SODIUM 50 MCG TAB PO SCH (05:18)
[2020-09-08 08:24] VITALS: BP 129/70
[2020-09-08 09:09] VITALS: BP 129/70
[2020-09-08] MEDS: CLOPIDOGREL BISULFATE 75 MG TAB PO SCH (09:24)
[2020-09-08] MEDS: FUROSEMIDE INJ 10 MG/ML 2 ML VIAL IV SCH (09:24)
[2020-09-08] MEDS: VALSARTAN/SACUBITRIL 24MG/26MG 1 EA TAB PO SCH (09:24)
[2020-09-08] MEDS: CARVEDILOL 3.125 MG TAB PO SCH (09:24)
[2020-09-08] MEDS: GABAPENTIN 400 MG CAP PO SCH (09:24)
[2020-09-08] MEDS ORDERED: ENTRESTO 24 MG1 EACH PO (09:44)
[2020-09-08] MEDS ORDERED: CARVEDILOL3.125 MG PO (09:45)
[2020-09-08 12:05] VITALS: BP 107/72
[2020-09-08 15:47] VITALS: BP 144/82
[2020-09-08] MEDS ORDERED: MINOCYCLINE HCL50 MG PO (17:12)
== END 2020-09-08 18:03 | disposition home or self-care (01) | DRG 223 ==
LOC: CATH LAB 07:48 → CATH LAB V 12:10 → PACU V 12:10 → UNDOADMIN 12:10 → MED/SURG3 15:08
PROVIDERS: ADMIT Internal Medicine Cardiovascular Disease; ATTEND Internal Medicine Cardiovascular Disease
PROC: 4A023N8 Measurement of Cardiac Sampling and Pressure, Bilateral, Percutaneous Approach (ICD-10-PCS; principal; 2020-09-06)
PROC: B2111ZZ Fluoroscopy of Multiple Coronary Arteries using Low Osmolar Contrast (ICD-10-PCS; 2020-09-06)
PROC: B2161ZZ Fluoroscopy of Right and Left Heart using Low Osmolar Contrast (ICD-10-PCS; 2020-09-06)
PROC: 0JH609Z Insertion of Cardiac Resynchronization Defibrillator Pulse Generator into Chest Subcutaneous Tissue and Fascia, Open Approach (ICD-10-PCS; 2020-09-07)
PROC: 02HL3KZ Insertion of Defibrillator Lead into Left Ventricle, Percutaneous Approach (ICD-10-PCS; 2020-09-07)
PROC: 0JPT0PZ Removal of Cardiac Rhythm Related Device from Trunk Subcutaneous Tissue and Fascia, Open Approach (ICD-10-PCS; 2020-09-07)
PROC: 02PA3MZ Removal of Cardiac Lead from Heart, Percutaneous Approach (ICD-10-PCS; 2020-09-07)
PROC: 3E0132A Introduction of Anti-Infective Envelope into Subcutaneous Tissue, Percutaneous Approach (ICD-10-PCS; 2020-09-07)
DX: I11.0 Hypertensive heart disease with heart failure (principal); I48.92 Unspecified atrial flutter; G45.1 Carotid artery syndrome (hemispheric); I50.23 Acute on chronic systolic (congestive) heart failure; Z95.0 Presence of cardiac pacemaker; I25.10 Atherosclerotic heart disease of native coronary artery without angina pectoris; I42.8 Other cardiomyopathies; R55 Syncope and collapse; I35.0 Nonrheumatic aortic (valve) stenosis; E78.5 Hyperlipidemia, unspecified
CPT/HCPCS: 33224; 36415; 71046; 75820; 80053; 80061; 84443; 85025; 85610; 85730; 93005; 93460; 99152; 99153; C1751; C1760; C1766; C1769; C1777; C1882; C1887; C1900; J0690; J1580; J1940; J2001; J2250; J3010; J3370; J7030; J7040; J7050; Q9967